=== PATIENT | female | born 1985 | race Caucasian/White ===

== ENCOUNTER 2017-12-19 00:47 | Emergency (ER) | payer OTHER ==
[2017-12-19 01:09] VITALS: BP 123/88; PULSE 79; O2SAT 98
--- NOTE | 2017-12-19 01:21 | ERPHSYRPT ---
- History of Present Illness Time Seen by Provider: 12/19/17 01:12 Source: patient Exam Limitations: no limitations Patient Subjective Stated Complaint: pt is alert and oriented. pt is ambulatory with a steady gait. pt comes in with c/o lower back pain on the right side. pt states that she has been drinking tonight "about a pint of captain calixto and maybe two more drinks" pt states that she the back pain started "a little bit before she started drinking but got way worse after she threw up". pt denies acute trauma or hx of back pain, denies radiating pain. no deformities, bruising , or redness noted. abdomen is nontender. Triage Nursing Assessment: see above Physician History: 32-year-old white female with history of migraines, fibromyalgia, endometriosis Arrives with complaint of pain in the right low lumbar region symptoms since this evening. Patient states he began to have pain in her right low lumbar region apparently began drinking and drank a pint of Calixto's. Patient apparently vomited and had worsening pain in her right low lumbar region. Patient denies any other complaints no belly pain she did have vomiting no fevers no urinary symptoms. Past medical history includes migraines, fibromyalgia, endometriosis. Past surgical history includes hysterectomy and tubal ligation. Social history includes history of tobacco use and occasional alcohol use she denies illicit drug use. Timing/Duration: today (proximally and hour prior to arrival) Severity: moderate Modifying Factors: Improves With: other (Patient drank a pint of Captain Calixto's) Associated Symptoms: nausea, vomiting, No abdominal pain, No shortness of breath , No heartburn, No diaphoresis, No cough, No chills, No chest pain, No fever, No headaches, No loss of appetite, No malaise, No rash, No syncope, No seizure, No weakness Allergies/Adverse Reactions: latex Allergy (Verified 12/19/17 01:09) Home Medications: Aspirin/Acetaminophen/Caffeine [Excedrin Extra Strength Caplet] 1 tab PO Q4- 6HPRN PRN 12/19/17 [History] Hx Tetanus, Diphtheria Vaccination/Date Given: No Hx Influenza Vaccination/Date Given: No Hx Pneumococcal Vaccination/Date Given: No Immunizations Up to Date: Yes - Review of Systems Constitutional: No Fever, No Chills Eyes: No Symptoms Ears, Nose, & Throat: No Symptoms Respiratory: No Cough, No Dyspnea Cardiac: No Chest Pain, No Edema, No Syncope Abdominal/Gastrointestinal: Nausea, Vomiting, No Abdominal Pain, No Diarrhea, No Constipation, No Hematemesis, No Hematochezia, No Melena, No Dysphagia, No Appetite Changes Genitourinary Symptoms: No Dysuria Musculoskeletal: Back Pain, Other (pain right low lumbar region), No Arthralgias , No Neck Pain, No Deformity, No Fall, No Injury, No Joint Redness, No Joint Pain, No Joint Swelling, No Myalgias Skin: No Rash Neurological: No Dizziness, No Focal Weakness, No Sensory Changes Psychological: No Symptoms Endocrine: No Symptoms All Other Systems: Reviewed and Negative - Past Medical History Pertinent Past Medical History: Yes Neurological History: Migraines ENT History: No Pertinent History Cardiac History: No Pertinent History Respiratory History: No Pertinent History Endocrine Medical History: No Pertinent History Musculoskeletal History: Fibromyalgia GI Medical History: Other History: No Pertinent History Psycho-Social History: No Pertinent History Female Reproductive Disorders: Endometriosis Other Medical History: heartburn - Past Surgical History Past Surgical History: Yes Female Surgical History: Hysterectomy, Tubal Ligation - Social History Smoking Status: Current every day smoker How long have you smoked: 25 years Exposure to second hand smoke: Yes Drug Use: none Patient Lives Alone: No - Female History Hx Now: No - Nursing Vital Signs Nursing Vital Signs: Initial Vital Signs Temperature 97.9 F 12/19/17 00:48 Pulse Rate 79 12/19/17 00:48 Respiratory Rate 16 12/19/17 00:48 Blood Pressure 123/88 12/19/17 00:48 O2 Sat by Pulse Oximetry 98 12/19/17 00:48 Pain Scale Pain Intensity [] 6 Pain Intensity 8 - Physical Exam General Appearance: mild distress Eye Exam: PERRL/EOMI, eyes nml inspection Ears, Nose, Throat Exam: normal ENT inspection, TMs normal, pharynx normal, moist mucous membranes Neck Exam: normal inspection, non-tender, supple, full range of motion Respiratory Exam: normal breath sounds, lungs clear, No respiratory distress Cardiovascular Exam: regular rate/rhythm, normal heart sounds, normal peripheral pulses Gastrointestinal/Abdomen Exam: soft, normal bowel sounds, No tenderness, No mass Rectal Exam: normal exam, other (moderate amount of stool in bowel) Back Exam: point tenderness, other (Pain with palpation and movement right low lumbar region), No CVA tenderness Extremity Exam: normal inspection, normal range of motion, pelvis stable Neurologic Exam: alert, oriented x 3, cooperative, normal mood/affect, nml cerebellar function, nml station & gait, sensation nml, No motor deficits Skin Exam: normal color, warm, dry, No rash SpO2 Interpretation: normal (98%) SpO2: 98 Oxygen Delivery: Room Air - Course Nursing assessment & vital signs reviewed: Yes - Radiology Exams L-Spine X-ray Interpretation: Interpreted by me (no acute fractures or subluxation air filled bowel) Ordered Tests: Active Orders 24 hr Category Date Time Status LUMBAR LIMITED (2 OR 3 VIEWS) Stat Exams 12/19/17 01:16 Taken ACETAMINOPHEN Stat Lab 12/19/17 02:12 Completed AMYLASE Stat Lab 12/19/17 02:12 Completed CBC W DIFF Stat Lab 12/19/17 02:12 Completed CMP Stat Lab 12/19/17 02:12 Completed ETHYL ALCOHOL Stat Lab 12/19/17 02:12 Completed LIPASE Stat Lab 12/19/17 02:12 Completed Occult Blood,Stool Other Stat Lab 12/19/17 03:09 Completed SALICYLATE Stat Lab 12/19/17 02:12 Completed UA W/RFX UR CULTURE Stat Lab 12/19/17 03:09 Completed Urine Triage Profile Stat Lab 12/19/17 03:09 Received Medication Summary Discontinued Medications Generic Name Dose Route Start Last Admin Trade Name Freq PRN Reason Stop Dose Admin Ketorolac Tromethamine 60 mg 12/19/17 01:23 12/19/17 01:55 Toradol 30 Mg Injection IM 12/19/17 01:24 60 mg STAT ONE Administration Ketorolac Tromethamine Confirm 12/19/17 01:28 Toradol 30 Mg Injection Administered 12/19/17 01:29 Dose 60 mg .ROUTE .OB10-TSCA ONE Lab/Rad Data: Laboratory Result Diagrams 12/19/17 02:12 12/19/17 02:12 Laboratory Results 12/19/17 12/19/17 12/19/17 Range/Units 03:09 03:09 02:12 WBC (4.0-10.5) K/mm3 RBC (4.1-5.4) M/mm3 Hgb (12.0-16.0) gm/dl Hct (35-47) % MCV (78-100) fl MCH (26-32) pg MCHC (32-36) g/dl RDW (11.5-14.0) % Plt Count (150-450) K/mm3 MPV (6-9.5) fl Gran % (36.0-66.0) % Eos # (Auto) (0-0.5) Absolute Lymphs (auto) (1.0-4.6) Absolute Monos (auto) (0.0-1.3) Lymphocytes % (24.0-44.0) % Monocytes % (0.0-12.0) % Eosinophils % (0.00-5.0) % Basophils % (0.0-0.4) % Absolute Granulocytes (1.4-6.9) Basophils # (0-0.4) Sodium (137-145) mmol/L Potassium (3.5-5.1) mmol/L Chloride (98-107) mmol/L Carbon Dioxide (22-30) mmol/L Anion Gap (5-15) MEQ/L BUN (7-17) mg/dL Creatinine (0.52-1.04) mg/dL Estimated GFR ML/MIN Glucose (74-106) mg/dL Calcium (8.4-10.2) mg/dL Total Bilirubin (0.2-1.3) mg/dL AST (14-36) U/L ALT (0-35) U/L Alkaline Phosphatase (38-126) U/L Serum Total Protein (6.3-8.2) g/dL Albumin (3.5-5.0) g/dL Amylase (30-110) U/L Lipase (23-300) U/L Urine Color COLORLESS (YELLOW) Urine Appearance CLEAR (CLEAR) Urine pH 6.0 (5-6) Ur Specific [place] 1.001 (1.005-1.025) Urine Protein NEGATIVE (Negative) Urine Ketones NEGATIVE (NEGATIVE) Urine Blood NEGATIVE (0-5) Seymour/ul Urine Nitrite NEGATIVE (NEGATIVE) Urine Bilirubin NEGATIVE (NEGATIVE) Urine Urobilinogen NEGATIVE (0-1) mg/dL Ur Leukocyte Esterase NEGATIVE (NEGATIVE) Urine WBC (Auto) NONE SEEN (0-5) /HPF Urine RBC (Auto) NONE (0-2) /HPF Urine Mucus (Auto) SLIGHT (NEGATIVE) /HPF Urine Culture Reflexed NO (NO) Urine Glucose NEGATIVE (NEGATIVE) mg/dL Stool Occult Blood NEGATIVE (Negative) Salicylates < 1.0 L (2-20) mg/dL Acetaminophen < 10 L (10-30) ug/ml Ethyl Alcohol (0-10) mg/dL 12/19/17 12/19/17 Range/Units 02:12 02:12 WBC 11.4 H (4.0-10.5) K/mm3 RBC 5.01 (4.1-5.4) M/mm3 Hgb 15.2 (12.0-16.0) gm/dl Hct 42.5 (35-47) % MCV 84.8 (78-100) fl MCH 30.3 (26-32) pg MCHC 35.8 (32-36) g/dl RDW 12.9 (11.5-14.0) % Plt Count 279 (150-450) K/mm3 MPV 9.8 H (6-9.5) fl Gran % 67.6 H (36.0-66.0) % Eos # (Auto) 0.04 (0-0.5) Absolute Lymphs (auto) 3.10 (1.0-4.6) Absolute Monos (auto) 0.52 (0.0-1.3) Lymphocytes % 27.2 (24.0-44.0) % Monocytes % 4.6 (0.0-12.0) % Eosinophils % 0.4 (0.00-5.0) % Basophils % 0.2 (0.0-0.4) % Absolute Granulocytes 7.73 H (1.4-6.9) Basophils # 0.02 (0-0.4) Sodium 143 (137-145) mmol/L Potassium 3.8 (3.5-5.1) mmol/L Chloride 106 (98-107) mmol/L Carbon Dioxide 21 L (22-30) mmol/L Anion Gap 19.2 H (5-15) MEQ/L BUN 10 (7-17) mg/dL Creatinine 0.53 (0.52-1.04) mg/dL Estimated GFR > 60.0 ML/MIN Glucose 122 H (74-106) mg/dL Calcium 9.2 (8.4-10.2) mg/dL Total Bilirubin 0.30 (0.2-1.3) mg/dL AST 31 (14-36) U/L ALT 42 H (0-35) U/L Alkaline Phosphatase 91 (38-126) U/L Serum Total Protein 8.1 (6.3-8.2) g/dL Albumin 5.0 (3.5-5.0) g/dL Amylase 77 (30-110) U/L Lipase 57 (23-300) U/L Urine Color (YELLOW) Urine Appearance (CLEAR) Urine pH (5-6) Ur Specific [place] (1.005-1.025) Urine Protein (Negative) Urine Ketones (NEGATIVE) Urine Blood (0-5) Seymour/ul Urine Nitrite (NEGATIVE) Urine Bilirubin (NEGATIVE) Urine Urobilinogen (0-1) mg/dL Ur Leukocyte Esterase (NEGATIVE) Urine WBC (Auto) (0-5) /HPF Urine RBC (Auto) (0-2) /HPF Urine Mucus (Auto) (NEGATIVE) /HPF Urine Culture Reflexed (NO) Urine Glucose (NEGATIVE) mg/dL Stool Occult Blood (Negative) Salicylates (2-20) mg/dL Acetaminophen (10-30) ug/ml Ethyl Alcohol 123 H (0-10) mg/dL - Progress Progress: improved Progress Note: 12/19/17 03:26 32-year-old white female arrives with complaint of severe right back pain symptoms since one hour prior to arrival. Patient states that she had again have back pain she apparently drank a pint of Calixto's, She apparently had an episode of vomiting and then had complaint of pain in her right back. Patient is tender with palpation to the right low back there is also tenderness with movement in the right low back. X-ray the patient's lumbar spine was unremarkable however there was evidence of a bowel distended with gas. Patient apparently had an episode of stool incontinence and x-ray she stated this was because of pain. On examination patient was alert oriented 3 HEENT within normal limits neck supple lungs are clear heart was regular abdomen soft nontender nondistended positive bowel sounds extremities tenderness with palpation point tenderness in the right low lumbar region. Patient had normal sphincter tone moderate amount of stool in her bowel which was soft. She has full range of motion all extremities sensation intact to all extremities patient was alert oriented 3. Because of distended bowel labs were obtained on this patient patient's white count mildly elevated at 11.4 hemoglobin was 15.2 hematocrit was 42.5 platelets of 279 patient's occult stool was negative Patient's chemistry was remarkable for a sodium of 143 potassium 3.8 chloride 106 bicarbonate 21 BUN 10 creatinine 0.53 glucose 122 blood alcohol level was 123 Anion gap was elevated at 19.2 acetaminophen level less than 10 and salicylate level less than 1.0 urinalysis is remarkable for specific gravity of 1.001( diluted specimen) Was otherwise unremarkable.. Urine drug screen is pending however with a diluted specimen utility of this is questionable. Will go ahead and discharge patient she has received Toradol 60 mg IM. Patient is advised to take Advil every 6 hours or Tylenol every 4 hours as needed for pain and follow-up with her family doctor. It has been recommended with increased. Her bowel that she go with clear fluids tonight. . - Departure Time of Disposition: 03:31 Departure Disposition: Home Clinical Impression: Back pain Qualifiers: Back pain location: low back pain Chronicity: acute Back pain laterality: right Sciatica presence: without sciatica Qualified Code(s): M54.5 - Low back pain Vomiting Qualifiers: Vomiting type: unspecified Vomiting Intractability: non-intractable Condition: Fair Critical Care Time: No Referrals: ALICE WATT [Primary Care Provider] - Instructions: Low Back Pain (DC) Additional Instructions: Return home. Plenty of fluids. Clear fluids only 24-48 hours if abdominal pain nausea vomiting. Advil every 6 hours as needed for pain. Tylenol every 4 hours as needed for pain. Follow-up with your family doctor. Return for acute distress or for severe symptoms. No more drinking alcohol tonight. No driving.
[2017-12-19] MEDS ORDERED: TORAdol 30 mg Injection IM ONE (01:23)
[2017-12-19] MEDS ORDERED: TORAdol 30 mg Injection ONE (01:28)
[2017-12-19 02:15] LABS: BASOPHIL % 0.2 % (0.0-0.4); Basophil (Absolute #) 0.02 (0-0.4); Eosinophil % 0.4 % (0.00-5.0); Eosinophil (Absolute #) 0.04 (0-0.5); Granulocyte Absolute (ANC) 7.73 (1.4-6.9); Granulocytes % 67.6 % (36.0-66.0); Hematocrit 42.5 % (35-47); Hemoglobin 15.2 gm/dl (12.0-16.0); Lymphocytes % 27.2 % (24.0-44.0); Mean Cell Volume 84.8 fl (78-100); Mean Corpuscular Hemoglobin 30.3 pg (26-32); Mean Corpuscular Hgb Concent. 35.8 g/dl (32-36); Mean Platelet Volume 9.8 fl (6-9.5); Monocyte (Absolute #) 0.52 (0.0-1.3); Monocytes % 4.6 % (0.0-12.0); Platelet Count 279 K/mm3 (150-450); Red Blood Count 5.01 M/mm3 (4.1-5.4); Red Cell Distribution Width 12.9 % (11.5-14.0); White Blood Count 11.4 K/mm3 (4.0-10.5)
[2017-12-19 02:41] LABS: ALKALINE PHOSPHATASE 91 U/L (38-126); AMYLASE 77 U/L (30-110); ANION GAP 19.2 MEQ/L (5-15); BLOOD UREA NITROGEN 10 mg/dL (7-17); CHLORIDE 106 mmol/L (98-107); Calcium 9.2 mg/dL (8.4-10.2); Carbon Dioxide 21 mmol/L (22-30); Creatinine 1 0.53 mg/dL (0.52-1.04); ETHYL ALCOHOL 123 mg/dL (0-10); Glucose 122 mg/dL (74-106); LIPASE 57 U/L (23-300); Potassium 3.8 mmol/L (3.5-5.1); SGOT/AST 31 U/L (14-36); SGPT/ALT 42 U/L (0-35); SODIUM 143 mmol/L (137-145); Total Protein 8.1 g/dL (6.3-8.2)
[2017-12-19 02:44] LABS: ACETAMINOPHEN < 10 ug/ml (10-30); SALICYLATE < 1.0 mg/dL (2-20)
[2017-12-19 03:14] LABS: Appearance CLEAR (CLEAR); Bilirubin NEGATIVE (NEGATIVE); Blood NEGATIVE Ery/ul (0-5); Glucose NEGATIVE (NEGATIVE); Ketones NEGATIVE (NEGATIVE); Leukocyte Esterase NEGATIVE (NEGATIVE); Nitrite NEGATIVE (NEGATIVE); Protein,Urine Dip NEGATIVE (Negative); Specific Gravity 1.001 (1.005-1.025); Urobilinogen NEGATIVE mg/dL (0-1)
[2017-12-19 03:28] LABS: Amphetamine,Urine NEGATIVE (NEGATIVE); Barbiturate,Urine NEGATIVE (NEGATIVE); Benzodiazepine,Urine NEGATIVE (NEGATIVE); Cocaine,Urine NEGATIVE (NEGATIVE); Methadone,Urine NEGATIVE (NEGATIVE); Opiate,Urine NEGATIVE (NEGATIVE); PCP,Urine NEGATIVE (NEGATIVE); THC,Urine NEGATIVE (NEGATIVE)
--- NOTE | 2017-12-19 08:47 | XRAY ---
Indication: Right low back pain. No known injury. Comparison: None 3 views of the lumbar spine demonstrates 5 lumbar vertebral segments in normal alignment with minimal L5-S1 disc space narrowing. No other bony, articular, or soft tissue abnormalities.
== END 2017-12-19 03:40 | disposition home or self-care (01) ==
LOC: ED 00:47
DX: M54.5 Low back pain (principal); R11.2 Nausea with vomiting, unspecified
CPT/HCPCS: 72100; 80053; 80307; 81001; 82150; 82272; 83690; 85025; 96372; 99284; G0481; 36415; J1885; G0480

== ENCOUNTER 2021-07-28 12:40 | Emergency (ER) | payer SELFPAY ==
[2021-07-28 12:51] VITALS: O2SAT 97
[2021-07-28] MEDS ORDERED: TORAdol 30 mg Injection IM ONE (12:55)
[2021-07-28] MEDS ORDERED: TORAdol 30 mg Injection ONE (13:09)
[2021-07-28 13:32] LABS: INFLUENZA A NEGATIVE (NEGATIVE); INFLUENZA B NEGATIVE (NEGATIVE); RESPIRATORY SYNCTIAL VIRUS NEGATIVE (Negative)
[2021-07-28 13:33] LABS: Epithelial Cells RARE /HPF (FEW); Mucus SLIGHT /HPF (NEGATIVE); WBC 0-2 /HPF (0-5)
[2021-07-28 13:35] LABS: Appearance CLEAR (CLEAR); Bilirubin NEGATIVE (NEGATIVE); Glucose NEGATIVE (NEGATIVE); Ketones NEGATIVE (NEGATIVE); Nitrite NEGATIVE (NEGATIVE); Protein,Urine Dip NEGATIVE (Negative); RBC NEGATIVE Ery/ul (0-5); Urobilinogen 0.2 mg/dL (0-1)
[2021-07-28 13:36] LABS: Dipstick done @ ? MAIN LAB
[2021-07-28 13:37] LABS: RBC NONE SEEN /HPF (0-2); Urine Cultured Indicated? NO
[2021-07-28 13:39] LABS: SARS-CoV-2 Xpert Express POSITIVE (NEGATIVE)
[2021-07-28] MEDS ORDERED: Decadron 4 MG PO STA (13:41)
--- NOTE | 2021-07-28 13:51 | ERPHSYRPT ---
- History of Present Illness Time Seen by Provider: 07/28/21 12:55 Source: patient Exam Limitations: no limitations Patient Subjective Stated Complaint: Fever Triage Nursing Assessment: Patient brought back to ED per EMS and transferred self to bed. Patient A+O X 3. Patient's skin pink, warm and dry. Patient complains of fever as high as 101.8, headache and joint pain 8/10. Patient denies N/V or diarrhea. Physician History: Patient 35-year-old female presents to our ED via EMS for evaluation of fever myalgias and arthralgias. Symptoms started today and progressed since today. No shortness of breath. Patient describes a fever at home. Patient currently afebrile. No trauma. No obvious sick contacts. Symptoms are mild to moderate in intensity. No specific worsening proving factors. Patient voices no other complaint or concerns at this time. Timing/Duration: today Severity: moderate Associated Symptoms: No nausea, No vomiting, No shortness of breath, No diaphoresis, No headaches, No loss of appetite, No syncope Allergies/Adverse Reactions: latex Allergy (Verified 07/28/21 12:46) Home Medications: No Reportable Medications [No Reported Medications] 07/28/21 [History] Hx Tetanus, Diphtheria Vaccination/Date Given: No Hx Influenza Vaccination/Date Given: No Hx Pneumococcal Vaccination/Date Given: No Immunizations Up to Date: Yes Travel Risk - International Travel Have you traveled outside of the country in past 3 weeks: No - Coronavirus Screening Are you exhibiting any of the following symptoms?: No Close contact with a COVID-19 positive Pt in past 14-21 Days: No - Vaccine Status Have you recieved a Covid-19 vaccination: No - Review of Systems Constitutional: No Symptoms, No Fever, No Chills Eyes: No Symptoms Ears, Nose, & Throat: No Symptoms Respiratory: No Symptoms, No Cough, No Dyspnea Cardiac: No Symptoms, No Chest Pain, No Edema, No Syncope Abdominal/Gastrointestinal: No Symptoms, No Abdominal Pain, No Nausea, No Vomiting, No Diarrhea Genitourinary Symptoms: No Symptoms, No Dysuria Musculoskeletal: No Symptoms, No Back Pain, No Neck Pain Skin: No Symptoms, No Rash Neurological: No Symptoms, No Dizziness, No Focal Weakness, No Sensory Changes Psychological: No Symptoms Endocrine: No Symptoms Hematologic/Lymphatic: No Symptoms Immunological/Allergic: No Symptoms All Other Systems: Reviewed and Negative - Past Medical History Pertinent Past Medical History: Yes Neurological History: Migraines ENT History: No Pertinent History Cardiac History: No Pertinent History Respiratory History: No Pertinent History Endocrine Medical History: No Pertinent History Musculoskeletal History: Fibromyalgia GI Medical History: Other History: No Pertinent History Psycho-Social History: No Pertinent History Female Reproductive Disorders: Endometriosis Other Medical History: heartburn - Past Surgical History Past Surgical History: Yes Female Surgical History: Hysterectomy, Tubal Ligation - Social History Smoking Status: Current every day smoker How long have you smoked: 25 years Exposure to second hand smoke: Yes Drug Use: none Patient Lives Alone: No - Female History Hx Last Menstrual Period: hysterectomy 2008 Hx Now: No - Nursing Vital Signs Nursing Vital Signs: Initial Vital Signs Temperature 99.4 F 07/28/21 12:47 Pulse Rate 92 H 07/28/21 12:47 Respiratory Rate 18 07/28/21 12:47 Blood Pressure 126/83 07/28/21 12:47 O2 Sat by Pulse Oximetry 97 07/28/21 12:47 Pain Scale Pain Intensity 6 - Physical Exam General Appearance: no apparent distress, alert Eye Exam: PERRL/EOMI, eyes nml inspection Ears, Nose, Throat Exam: normal ENT inspection, TMs normal, pharynx normal, moist mucous membranes Neck Exam: normal inspection, non-tender, supple, full range of motion Respiratory Exam: normal breath sounds, lungs clear, airway intact, No chest tenderness, No respiratory distress Cardiovascular Exam: regular rate/rhythm, normal heart sounds, normal peripheral pulses Gastrointestinal/Abdomen Exam: soft, normal bowel sounds, No tenderness, No mass Back Exam: normal inspection, normal range of motion, No CVA tenderness, No vertebral tenderness Extremity Exam: normal inspection, normal range of motion, pelvis stable Neurologic Exam: alert, oriented x 3, cooperative, normal mood/affect, nml cerebellar function, nml station & gait, sensation nml, No motor deficits Skin Exam: normal color, warm, dry, No rash Lymphatic Exam: No adenopathy SpO2 Interpretation: normal SpO2: 97 O2 Delivery: Room Air - Course Nursing assessment & vital signs reviewed: Yes Ordered Tests: Active Orders 24 hr Category Date Time Status UA W/RFX CULTURE Stat Lab 07/28/21 13:31 Completed Medication Summary Discontinued Medications Generic Name Dose Route Start Last Admin Trade Name Freq PRN Reason Stop Dose Admin Dexamethasone 6 mg 07/28/21 13:41 07/28/21 13:58 Dexamethasone 4 Mg Tablet PO 07/28/21 13:42 6 mg ONCE STA Administration Ketorolac Tromethamine 30 mg 07/28/21 12:55 07/28/21 13:11 Ketorolac Tromethamine 30 Mg/Ml Inj IM 07/28/21 12:56 30 mg STAT ONE Administration Ketorolac Tromethamine Confirm 07/28/21 13:09 Ketorolac Tromethamine 30 Mg/Ml Inj Administered 07/28/21 13:10 Dose 30 mg .ROUTE .STK-MED ONE Lab/Rad Data: Laboratory Results 07/28/21 07/28/21 Range/Units 13:31 12:55 Urinalys Dipstick Clnc MAIN LAB Urine Color YELLOW (YELLOW) Urine Appearance CLEAR (CLEAR) Urine pH 6.0 (5-6) Ur Specific [place] 1.020 (1.005-1.025) POC Urine Protein Conf NEGATIVE (Negative) Urine Ketones NEGATIVE (NEGATIVE) Urine Nitrite NEGATIVE (NEGATIVE) Urine Bilirubin NEGATIVE (NEGATIVE) Urine Urobilinogen 0.2 (0-1) mg/dL Urine Leukocytes NEGATIVE (NEGATIVE) Urine WBC (Auto) 0-2 (0-5) /HPF Urine RBC (Auto) NONE SEEN (0-2) /HPF U Epithel Cells (Auto) RARE (FEW) /HPF Urine Bacteria (Auto) Not Reportable Urine RBC NEGATIVE (0-5) Seymour/ul Urine Mucus (Auto) SLIGHT (NEGATIVE) /HPF Ur Culture Indicated? NO Urine Glucose NEGATIVE (NEGATIVE) mg/dL Influenza Type A Ag NEGATIVE (NEGATIVE) Influenza Type B Ag NEGATIVE (NEGATIVE) RSV (PCR) NEGATIVE (Negative) SARS-CoV-2 (PCR) POSITIVE A (NEGATIVE) - Progress Progress: improved Counseled pt/family regarding: lab results, diagnosis, need for follow-up - Departure Departure Disposition: Home Clinical Impression: COVID-19, Myalgia Condition: Stable Critical Care Time: No Instructions: COVID-19 (DC) Additional Instructions: Discharge/Care Plan MARIBEL DOTSON was seen on 07/28/21 in the Emergency Room. The patient was counseled regarding Diagnosis,Lab results, Imaging studies, need for follow up and when to return to the Emergency Room. Prescriptions given: Discharge Note I have spoken with the patient and/or caregivers. I have explained the patient's condition, diagnosis and treatment plan based on the information available to me at this time. I have answered the patient's and/or caregiver's questions and addressed any concerns. The patient and/or caregivers have as good understanding of the patient's diagnosis, condition and treatment plan as can be expected at this point. The vital signs have been stable. The patient's condition is stable and appropriate for discharge from the emergency department. The patient will pursue further outpatient evaluation with the primary care physician or other designated or consulting physician as outlined in the discharge instructions. The patient and/or caregivers are agreeable to this plan of care and follow-up instructions have been explained in detail. The patient and/or caregivers have received these instruction. The patient/and or caregivers are aware that any significant change in condition or worsening of symptoms should prompt an immediate return to this or the closest emergency department or call 911.
[2021-07-28 14:06] VITALS: BP 113/67; PULSE 80
== END 2021-07-28 14:06 | disposition home or self-care (01) ==
LOC: ED 12:40
DX: U07.1 COVID-19 (principal); R50.9 Fever, unspecified; M79.10 Myalgia, unspecified site; Z72.0 Tobacco use; Z28.310 Unvaccinated for COVID-19
CPT/HCPCS: 0241U; 81015; 96372; 99284; J1885; A9270-GY